=== PATIENT | male | born 1970 | race Caucasian/White ===

== ENCOUNTER 2019-06-08 04:41 | Emergency (ER) | payer MEDICARE, OTHER, MEDICAID ==
[~2019-06-08] VITALS: Ht 177.8 cm; Wt 77.1 kg
[2019-06-08] MEDS ORDERED: LISINOPRIL10 MG PO (04:51)
[2019-06-08] MEDS ORDERED: HYDROCHLOROTH12.5 M1 PO (04:51)
[2019-06-08] MEDS ORDERED: PERCOCET 7.5-31 EACH PO (05:04)
[2019-06-08] MEDS ORDERED: DOXYCYCLINE 10100 M1 PO (05:04)
[2019-06-08] MEDS ORDERED: ZOVIRAX30 GM TOP (05:04)
[2019-06-08] MEDS ORDERED: NEURONTIN 300300 M1 PO (05:13)
[2019-06-08 05:17] VITALS: BP 156/96
== END 2019-06-08 05:17 | disposition home or self-care (01) ==
LOC: M.ERS 04:41
DX: B02.9 Zoster without complications (principal); I10 Essential (primary) hypertension; Z88.6 Allergy status to analgesic agent; Z88.8 Allergy status to other drugs, medicaments and biological substances